=== PATIENT | male | born 1990 | race Asian ===

== ENCOUNTER 2019-10-17 10:36 | Emergency (ER) | payer SELFPAY ==
[~2019-10-17] VITALS: Ht 180.3 cm; Wt 68.5 kg
[2019-10-17 11:37] LABS: BASOPHILS % 0.7 % (0.0-2.0); EOSINOPHILS % 2.6 % (0.0-5.0); HEMATOCRIT. 42.8 % (42.0-52.0); HEMOGLOBIN. 14.5 g/dL (14.0-18.0); MEAN CORPUSCULAR HEMOGLOBIN 30.6 pg (28.0-32.0); MEAN PLATELET VOLUME 7.2 fl (7.4-10.4); MONOCYTES % 7.8 % (2.0-8.0); NEUTROPHILS % 61.9 % (40.0-76.0); PLATELET 283 x1000/uL (130-400); RED BLOOD CELL COUNT 4.76 mill/uL (4.7-6.1)
[2019-10-17 11:43] LABS: CHLORIDE 104 mEq/L (98-107)
[2019-10-17 12:29] VITALS: BP 137/93
== END 2019-10-17 12:34 | disposition home or self-care (01) ==
LOC: ER 10:36
DX: K62.5 Hemorrhage of anus and rectum (principal); F17.290 Nicotine dependence, other tobacco product, uncomplicated; F12.10 Cannabis abuse, uncomplicated; I10 Essential (primary) hypertension
CPT/HCPCS: 36415; 80048; 99283; 99406

== ENCOUNTER 2020-09-09 20:40 | Emergency (ER) | payer BC ==
[~2020-09-09] VITALS: Ht 177.8 cm; Wt 84.0 kg
[2020-09-09] MEDS ORDERED: KETOROLAC 60MG/2ML VIAL IM ONE (22:00)
[2020-09-09 22:59] VITALS: BP 143/88
== END 2020-09-09 23:02 | disposition home or self-care (01) ==
LOC: ER 20:40
DX: S39.012A Strain of muscle, fascia and tendon of lower back, initial encounter (principal); I10 Essential (primary) hypertension; X58.XXXA Exposure to other specified factors, initial encounter; Y93.89 Activity, other specified; Y92.89 Other specified places as the place of occurrence of the external cause
CPT/HCPCS: 72070; 96372; 99283; J1885

== ENCOUNTER 2021-03-05 08:31 | Emergency (ER) | payer BC ==
[~2021-03-05] VITALS: Ht 180.3 cm; Wt 84.0 kg
[2021-03-05] MEDS ORDERED: KETOROLAC 60MG/2ML VIAL IM ONE (09:30)
[2021-03-05 09:38] VITALS: BP 132/79
== END 2021-03-05 10:10 | disposition home or self-care (01) ==
LOC: ER 08:31
DX: M54.5 Low back pain (principal); I10 Essential (primary) hypertension
CPT/HCPCS: 96372; 99283; J1885